=== PATIENT | female | born 1970 | race American Indian/Alaskan Native ===

== ENCOUNTER → 2016-09-09 | Outpatient (CLI) | payer MEDICAID ==
[~2016-09-09] MED LIST: ACET325T14 PO; ATEN25TA PO; BARIATRIC VITAMINS PO; CHOL200012 PO; CLIN300C93 PO; ERGO500017 PO; FURO-92 PO; IBUP400T PO; LEVO25TA4 PO; LORA10TA3 PO; MEDR10TA3 PO; METR500T PO; OMEP-110 PO; POTA20TA89 PO; TAMO20TA PO
[2016-09-09 15:58] LABS: HEMOGLOBIN 14.8 g/dL (11.7-16.4)
== END | disposition home or self-care (01) ==
LOC: STAR 14:31
PROVIDERS: ATTEND Student in an Organized Health Care Education/Training Program
DX: Z01.818 Encounter for other preprocedural examination (principal); N93.8 Other specified abnormal uterine and vaginal bleeding
CPT/HCPCS: 36415; 81001; 81003; 85025

== ENCOUNTER 2016-09-19 09:59 | Day surgery (SDC) | payer MEDICAID ==
[~2016-09-19] VITALS: Ht 170.2 cm; Wt 138.0 kg
[2016-09-19 11:00] VITALS: BP 133/76
[2016-09-19] MEDS ORDERED: LACTATED RINGERS 1,000 ML IV SCH (11:02)
[2016-09-19] MEDS ORDERED: SILVER NITRATE STICK TP ONE (11:07)
[2016-09-19] MEDS ORDERED: BUPIVACAINE/PF-EPI 0.25% 1:200K ONE (11:07)
[2016-09-19 11:17] LABS: HCG UR OBC PASS
[2016-09-19] MEDS ORDERED: FENTANYL PF 250 MCG/5ML ONE (11:54)
[2016-09-19] MEDS ORDERED: MIDAZOLAM 1 MG/ML, 2ML ONE (11:54)
[2016-09-19] MEDS ORDERED: ONDANSETRON 2MG/ML, 2ML ONE (12:00)
[2016-09-19] MEDS ORDERED: DEXAMETHASONE 4 MG/ML, 1ML ONE (12:00)
[2016-09-19] MEDS ORDERED: KETOROLAC 30 MG/1 ML ONE (12:00)
[2016-09-19] MEDS ORDERED: PROPOFOL 10 MG/ML, 20ML ONE (12:00)
[2016-09-19] MEDS ORDERED: ACETAMINOPHEN 650 MG/20.3 ML UDC ONE (12:59)
[2016-09-19] MEDS ORDERED: OXYcodone 5 MG/5 ML ORAL.SOL UDC ONE (13:00)
[2016-09-19] MEDS ORDERED: METOPROLOL 1 MG/ML, 5ML IV PRN (13:00)
[2016-09-19] MEDS ORDERED: MEPERIDINE/PF 25MG/0.5ML ONE (13:00)
[2016-09-19] MEDS ORDERED: ALBUTEROL SULFATE 2.5 MG/3 ML NPPB PRN (13:00)
[2016-09-19] MEDS ORDERED: PROMETHAZINE 25 MG/ML, 1ML IV PRN (13:00)
[2016-09-19] MEDS ORDERED: ACETAMINOPHEN 325 MG TABLET PO PRN (13:00)
[2016-09-19] MEDS ORDERED: FENTANYL PF 100 MCG/2ML IV PRN (13:00)
[2016-09-19] MEDS ORDERED: ACETAMINOPHEN 325 MG TABLET ONE (13:00)
[2016-09-19] MEDS ORDERED: HYDROmorphone 1 MG/ML, 1ML IV PRN (13:00)
[2016-09-19] MEDS ORDERED: EPHEDRINE 50 MG/ML, 1ML IVPush PRN (13:00)
[2016-09-19] MEDS ORDERED: hydrALAzine 20 MG/ML, 1ML IV PRN (13:00)
[2016-09-19] MEDS ORDERED: MEPERIDINE/PF 25MG/0.5ML IVPush PRN (13:00)
[2016-09-19] MEDS ORDERED: OXYcodone 5 MG/5 ML ORAL.SOL UDC PO PRN (13:00)
[2016-09-19] MEDS ORDERED: MIDAZOLAM 1 MG/ML, 2ML IV PRN (13:00)
[2016-09-19] MEDS ORDERED: ONDANSETRON 2MG/ML, 2ML IVPush PRN (13:00)
[2016-09-19] MEDS ORDERED: LABETALOL 5MG/ML, 20ML IV PRN (13:00)
== END 2016-09-19 15:35 | disposition home or self-care (01) ==
LOC: OUT 09:59
PROVIDERS: ATTEND Student in an Organized Health Care Education/Training Program
DX: N93.9 Abnormal uterine and vaginal bleeding, unspecified (principal); G47.33 Obstructive sleep apnea (adult) (pediatric); I10 Essential (primary) hypertension; E03.9 Hypothyroidism, unspecified; K21.9 Gastro-esophageal reflux disease without esophagitis; E66.01 Morbid (severe) obesity due to excess calories; Z68.42 Body mass index [BMI] 45.0-49.9, adult; Z85.3 Personal history of malignant neoplasm of breast; Z98.84 Bariatric surgery status; Z82.49 Family history of ischemic heart disease and other diseases of the circulatory system; Z82.61 Family history of arthritis; Z83.3 Family history of diabetes mellitus
CPT/HCPCS: 36415; 58558; 81025; 86850; 86900; 88305; J1100; J1885; J2175; J2250; J2405; J2704; J3010; J7120

== ENCOUNTER → 2016-11-17 | Outpatient (CLI) | payer MEDICAID ==
[~2016-11-17] MED LIST changes: +MULT1CAP19 PO
[2016-11-17 12:20] LABS: BLOOD UREA NITROGEN 12 mg/dL (7-18)
[2016-11-17 12:28] LABS: ASPARTATE AMINO TRANSFERASE 14 U/L (15-37)
== END | disposition home or self-care (01) ==
LOC: STAR 10:37
PROVIDERS: ATTEND Specialist
DX: Z01.818 Encounter for other preprocedural examination (principal); R79.1 Abnormal coagulation profile
CPT/HCPCS: 36415; 71020; 80053; 84703; 85610; 85730; 93005

== ENCOUNTER → 2016-11-20 | Outpatient (CLI) | payer MEDICAID | END | disposition home or self-care (01) | LOC: CFH 14:06 | PROVIDERS: ATTEND Internal Medicine | DX: Z12.31 Encounter for screening mammogram for malignant neoplasm of breast (principal); N64.89 Other specified disorders of breast; Z85.3 Personal history of malignant neoplasm of breast; Z92.3 Personal history of irradiation; Z98.890 Other specified postprocedural states | CPT/HCPCS: G0202 ==

== ENCOUNTER 2016-11-24 09:01 | Day surgery (SDC) | payer MEDICAID ==
[~2016-11-24] VITALS: Ht 170.2 cm; Wt 141.8 kg
[~2016-11-24 09:01] MED LIST changes: +BUPIVACAINE/PF-EPI 0.25% 1:200K ONE
[2016-11-24 09:45] VITALS: BP 145/80
[2016-11-24] MEDS ORDERED: LACTATED RINGERS 1,000 ML IV SCH (10:03)
[2016-11-24] MEDS ORDERED: ROCURONIUM 10 MG/ML ONE (10:18)
[2016-11-24] MEDS ORDERED: DEXAMETHASONE 4 MG/ML, 1ML ONE (10:18)
[2016-11-24] MEDS ORDERED: SUCCINYLCHOLINE 20 MG/ML, 10ML ONE (10:18)
[2016-11-24] MEDS ORDERED: KETOROLAC 30 MG/1 ML ONE (10:18)
[2016-11-24] MEDS ORDERED: PROPOFOL 10 MG/ML, 20ML ONE (10:18)
[2016-11-24] MEDS ORDERED: ONDANSETRON 2MG/ML, 2ML ONE ×2 (10:18→13:36)
[2016-11-24] MEDS ORDERED: CLINDAMYCIN 150 MG/ML, 6ML ONE (11:05)
[2016-11-24] MEDS ORDERED: SUGAMMADEX 200 MG/2 ML IVPush ONE (12:44)
[2016-11-24] MEDS ORDERED: ACETAMINOPHEN 650 MG/20.3 ML UDC ONE (13:35)
[2016-11-24] MEDS ORDERED: OXYcodone 5 MG/5 ML ORAL.SOL UDC ONE (13:36)
[2016-11-24] MEDS ORDERED: ACETAMINOPHEN 325 MG/10.15 ML UDC ONE (13:36)
[2016-11-24] MEDS ORDERED: FENTANYL PF 100 MCG/2ML ONE (13:36)
[2016-11-24] MEDS: FENTANYL PF 100 MCG/2ML IV PRN ×2 (13:49→14:07)
[2016-11-24] MEDS ORDERED: OXYcodone 5 MG/5 ML ORAL.SOL UDC PO PRN (14:00)
[2016-11-24] MEDS ORDERED: LABETALOL 5MG/ML, 20ML IV PRN (14:00)
[2016-11-24] MEDS ORDERED: ACETAMINOPHEN 325 MG TABLET PO PRN (14:00)
[2016-11-24] MEDS ORDERED: ALBUTEROL SULFATE 2.5 MG/3 ML NPPB PRN (14:00)
[2016-11-24] MEDS ORDERED: hydrALAzine 20 MG/ML, 1ML IV PRN (14:00)
[2016-11-24] MEDS ORDERED: HYDROmorphone 1 MG/ML, 1ML IV PRN (14:00)
[2016-11-24] MEDS ORDERED: ONDANSETRON 2MG/ML, 2ML IVPush PRN (14:00)
[2016-11-24] MEDS ORDERED: CALCIUM CARBONATE 500 MG TAB.CHEW PO PRN (18:00)
[2016-11-24] MEDS ORDERED: OXYcodone/APAP 7.5/325MG TABLET ONE (18:22)
[2016-11-24] MEDS ORDERED: OXYcodone/APAP 7.5/325MG TABLET PO ONE (18:30)
== END 2016-11-24 18:30 | disposition home or self-care (01) ==
LOC: OUT 09:01
PROVIDERS: ATTEND Specialist
DX: N84.0 Polyp of corpus uteri (principal); I11.0 Hypertensive heart disease with heart failure; E03.9 Hypothyroidism, unspecified; E66.01 Morbid (severe) obesity due to excess calories; G47.33 Obstructive sleep apnea (adult) (pediatric); K21.9 Gastro-esophageal reflux disease without esophagitis; Z85.3 Personal history of malignant neoplasm of breast; Z98.890 Other specified postprocedural states; Z82.49 Family history of ischemic heart disease and other diseases of the circulatory system; Z83.3 Family history of diabetes mellitus; Z80.3 Family history of malignant neoplasm of breast; Z80.41 Family history of malignant neoplasm of ovary
CPT/HCPCS: 36415; 58552; 86850; 86900; 86923; 88307; J0330; J1100; J1885; J2405; J2704; J3010; J7120; S2900